=== PATIENT | male | born 1945 | race Caucasian/White ===

== ENCOUNTER → 2018-04-23 | Emergency (ER) | payer OTHER ==
[~2018-04-23] VITALS: Ht 165.1 cm; Wt 59.0 kg
[~2018-04-23] MED LIST: LIPITOR20 MG; METFORMIN HYDRO25 GM
== END | disposition home or self-care (01) ==
LOC: ER 09:49
DX: R55 Syncope and collapse (principal); T80.89XA Other complications following infusion, transfusion and therapeutic injection, initial encounter; Y92.59 Other trade areas as the place of occurrence of the external cause

== ENCOUNTER 2018-09-12 07:09 | Outpatient (CLI) | payer OTHER | END 2018-09-12 07:18 | disposition home or self-care (01) | LOC: MRI 07:09 | DX: G30.1 Alzheimer's disease with late onset (principal) | CPT/HCPCS: 70551 ==